=== PATIENT | female | born 1990 | race Caucasian/White ===

== ENCOUNTER 2018-10-02 14:31 | Inpatient (IN) | payer MEDICAID, OTHER ==
[~2018-10-02] VITALS: Ht 160 cm; Wt 92.3 kg
[2018-10-02 15:02] LABS: CLARITY,URINE CLEAR (Clear); GLUCOSE, URINE 100 mg/dl (Neg); KETONES,URINE TRACE mg/dl (Neg); LEUKOCYTE ESTERASE ,URINE TRACE (Neg); NITRITES, URINE NEGATIVE (Neg); OCCULT BLOOD,URINE NEGATIVE (Neg); PH,URINE 6.5 (4.8-8.0); PROTEIN,URINE TRACE mg/dl (Neg)
[2018-10-02 15:03] LABS: URINE HCG NEGATIVE (NEG)
[2018-10-02 15:06] LABS: UA COLLECTION TYPE CLN CATCH MIDSTREAM
[2018-10-02 15:08] LABS: COLOR,URINE DARK YELLOW (Yellow)
[2018-10-02 15:11] LABS: BACTERIA,URINE 2+ /HPF (Neg); MUCUS STRANDS FEW /LPF (Neg); RBC,URINE NONE SEEN /HPF (0-2); SQUAMOUS EPITHELIAL CELL,UR MANY /LPF (FEW); WBC,URINE 0-4 /HPF (0-4)
[2018-10-02] MEDS ORDERED: LIDOcaine Viscous 15ml cup PO ONE (15:30)
[2018-10-02] MEDS ORDERED: mag hydrox/Alum hydrox/simeth 30ml oral suspension PO ONE (15:30)
[2018-10-02] MEDS ORDERED: famotidine 20mg tablet PO ONE (15:30)
[2018-10-02 15:35] LABS: BASOPHILS % (AUTO) 0.3 % (0-1); EOSINOPHILS # (AUTO) 0.1 X10'3 (0-0.9); EOSINOPHILS % (AUTO) 1.4 % (0-6); HEMATOCRIT 46.1 % (35.0-45.0); HEMOGLOBIN 15.6 g/dl (12.0-16.0); LYMPHOCYTES # (AUTO) 1.6 X10'3 (1.1-4.8); LYMPHOCYTES % (AUTO) 23.4 % (21-51); MEAN CORPUSCULAR HEMOGLOBIN 29.7 PG (27.0-31.0); MEAN CORPUSCULAR HGB CONC 33.9 g/dL (33.0-36.5); MEAN CORPUSCULAR VOLUME 87.4 FL (78-98); MEAN PLATELET VOLUME 9.7 FL (7.4-10.4); MONOCYTES # (AUTO) 0.6 X10'3 (0-0.9); MONOCYTES % (AUTO) 8.3 % (2-12); NEUTROPHILS # (AUTO) 4.5 X10'3 (1.8-7.7); NEUTROPHILS % (AUTO) 66.6 % (42-75); PLATELET COUNT 230 X10'3 (140-440); RED BLOOD COUNT 5.28 X10'6 (4.20-5.60); RED CELL DISTRIBUTION WIDTH 13.2 % (11.5-14.5); WHITE BLOOD COUNT 6.8 X10'3 (4.5-11.0)
[2018-10-02] MEDS ORDERED: ondansetron/PF 4mg/2ml inj IV ONE (15:45)
[2018-10-02] MEDS ORDERED: morphine 4 MG/ML inj SYRINge IV PRN (15:45)
[2018-10-02] MEDS ORDERED: normal saline 1000ML IV soln IVB ONE (15:45)
[2018-10-02 15:54] LABS: ALBUMIN 4.4 G/DL (3.4-5.0); ALKALINE PHOSPHATASE 184 IU/L (46-116); ANION GAP 13 (8-16); ASPARTATE AMINO TRANSFERASE 302 U/L (10-37); BILIRUBIN,TOTAL 4.8 MG/DL (0.1-1.0); BLOOD UREA NITROGEN 8 MG/DL (7-18); BUN/CREATININE RATIO 10.8 (6.6-38.0); CALCIUM 9.9 MG/DL (8.5-10.1); CHLORIDE 105 MMOL/L (99-107); CREATININE 0.74 MG/DL (0.40-0.90); GLUCOSE 118 MG/DL (70-104); LIPASE 152 U/L (73-393); POTASSIUM 3.6 MMOL/L (3.5-5.1); SODIUM 143 MMOL/L (135-145); TOTAL CARBON DIOXIDE 25.5 MMOL/L (24-32); eGFR > 90 ML/MIN
[2018-10-02 15:58] LABS: ALANINE AMINOTRANSFERASE 2056 U/L (12-78); ALBUMIN/GLOBULIN RATIO 1.1 (1.1-1.5); TOTAL PROTEIN 8.3 G/DL (6.4-8.2)
[2018-10-02] MEDS ORDERED: acetaminophen 325mg tablet PO PRN ×2 (16:35)
[2018-10-02] MEDS ORDERED: ondansetron/PF 4mg/2ml inj IV PRN (16:35)
[2018-10-02] MEDS ORDERED: HYDROcodone/acetaminophen 10/325mg tab PO PRN (16:35)
[2018-10-02] MEDS ORDERED: magnesium hydroxide 30ml (MOM) UD suspension PO PRN (16:35)
[2018-10-02] MEDS ORDERED: mag hydrox/Alum hydrox/simeth 30ml oral suspension PO PRN (16:35)
[2018-10-02] MEDS ORDERED: HYDROcodone/acetaminophen 5mg/325mg tablet PO PRN (16:35)
[2018-10-02] MEDS ORDERED: NO HOME MEDS (16:44)
[2018-10-02] MEDS: normal saline 1000ml 1,000 ML IV SCH (17:27)
--- NOTE | 2018-10-02 19:14 | NUR ---
per dr. meek pt not going to surgery tonight, likely in am
--- NOTE | 2018-10-02 19:20 | NUR ---
Patient in room [facility]. I have received report from Katharine Le Rn and had the opportunity to ask questions and will assume patient care upon arrival to the floor. Addendum: 10/02/18 at 2005 by Malina Mackay RN Amended: Links added.
--- NOTE | 2018-10-02 19:35 | NUR ---
pt settled into bed no s&S of distress and started to dart her and nasal swab done on her.
[2018-10-02 20:08] VITALS: BP 129/82
--- NOTE | 2018-10-02 21:30 | NUR ---
denies pain at this time.
--- NOTE | 2018-10-02 22:30 | NUR ---
resting without changes
[2018-10-03] VITALS (20 sets, daily range): BP systolic 93–162; BP diastolic 55–85
--- NOTE | 2018-10-03 00:31 | NUR ---
resting eyes closed no s&s of distress.
[2018-10-03] MEDS: normal saline 1000ml 1,000 ML IV SCH ×2 (02:46→16:18)
--- NOTE | 2018-10-03 02:50 | NUR ---
pt awoke denies pain and new iv ns hung at this time.
--- NOTE | 2018-10-03 03:47 | NUR ---
awake texting sitting up in bed. denies pain.
--- NOTE | 2018-10-03 04:37 | NUR ---
awake denies pain no changes.
--- NOTE | 2018-10-03 05:25 | NUR ---
pt resting eyes closed without changes.
[2018-10-03 05:41] LABS: BASOPHILS % (AUTO) 0.3 % (0-1); EOSINOPHILS # (AUTO) 0.1 X10'3 (0-0.9); EOSINOPHILS % (AUTO) 1.2 % (0-6); HEMATOCRIT 39.7 % (35.0-45.0); HEMOGLOBIN 13.5 g/dl (12.0-16.0); LYMPHOCYTES # (AUTO) 1.7 X10'3 (1.1-4.8); LYMPHOCYTES % (AUTO) 31.2 % (21-51); MEAN CORPUSCULAR HEMOGLOBIN 29.8 PG (27.0-31.0); MEAN CORPUSCULAR HGB CONC 33.9 g/dL (33.0-36.5); MEAN CORPUSCULAR VOLUME 87.9 FL (78-98); MEAN PLATELET VOLUME 9.9 FL (7.4-10.4); MONOCYTES # (AUTO) 0.5 X10'3 (0-0.9); MONOCYTES % (AUTO) 10.2 % (2-12); NEUTROPHILS # (AUTO) 3.1 X10'3 (1.8-7.7); NEUTROPHILS % (AUTO) 57.1 % (42-75); PLATELET COUNT 162 X10'3 (140-440); RED BLOOD COUNT 4.52 X10'6 (4.20-5.60); RED CELL DISTRIBUTION WIDTH 13.6 % (11.5-14.5); WHITE BLOOD COUNT 5.4 X10'3 (4.5-11.0)
[2018-10-03 05:50] LABS: ALBUMIN 3.2 G/DL (3.4-5.0); ALKALINE PHOSPHATASE 139 IU/L (46-116); ANION GAP 10 (8-16); ASPARTATE AMINO TRANSFERASE 205 U/L (10-37); BILIRUBIN,TOTAL 4.1 MG/DL (0.1-1.0); BLOOD UREA NITROGEN 6 MG/DL (7-18); BUN/CREATININE RATIO 9.2 (6.6-38.0); CALCIUM 8.5 MG/DL (8.5-10.1); CHLORIDE 111 MMOL/L (99-107); CREATININE 0.65 MG/DL (0.40-0.90); GLUCOSE 102 MG/DL (70-104); POTASSIUM 3.6 MMOL/L (3.5-5.1); SODIUM 145 MMOL/L (135-145); TOTAL CARBON DIOXIDE 24.3 MMOL/L (24-32); eGFR > 90 ML/MIN
[2018-10-03 05:51] LABS: ALANINE AMINOTRANSFERASE 1380 U/L (12-78); TOTAL PROTEIN 6.4 G/DL (6.4-8.2)
--- NOTE | 2018-10-03 06:33 | NUR ---
Problems reprioritized. Patient report given, questions answered & plan of care reviewed with MIRIAM JOE. Addendum: 10/03/18 at 0634 by Malina Mackay RN Amended: Links added.
--- NOTE | 2018-10-03 06:44 | NUR ---
Patient in room [facility]. I have received report from Malina JOE and had the opportunity to ask questions and assume patient care.
[2018-10-03] MEDS ORDERED: fentaNYL/PF 50MCG/1 ML 2ML syringe ONE (09:42)
[2018-10-03] MEDS ORDERED: diphenhydrAMINE 50 mg/ml inj ONE (09:42)
[2018-10-03] MEDS ORDERED: MIDAZolam 5mg/5ml vial ONE (09:42)
[2018-10-03] MEDS ORDERED: glucagon, human recombinant 1mg kit ONE (09:42)
[2018-10-03] MEDS ORDERED: LIDOcaine Viscous 15ml cup ONE (09:43)
[2018-10-03] MEDS ORDERED: iohexol 300 MG/1 ML 50ml polymer ONE (09:43)
[2018-10-03] MEDS ORDERED: levoFLOXACIN-Levaquin 500mg/D5 100 ML IV ONE (10:43)
[2018-10-03] MEDS: HYDROmorphone inj. 0.5 MG/0.5 ML DISP.SYRIN IV PRN ×2 (14:39→19:40)
[2018-10-03] MEDS ORDERED: metoclopramide 5 mg/ml inj IV PRN (16:05)
--- NOTE | 2018-10-03 18:28 | NUR ---
Patient in room [facility]. I have received report from MIRIAM JOE and had the opportunity to ask questions and assume patient care. Addendum: 10/03/18 at 1828 by Malina Mackay RN Amended: Links added.
--- NOTE | 2018-10-03 18:51 | NUR ---
Problems reprioritized. Patient report given, questions answered & plan of care reviewed with Malina JOE.
--- NOTE | 2018-10-03 19:45 | NUR ---
pt medicated for nausea and pain at this time. tried few sips of tea at dinner which made her nauseous did not take anything else
--- NOTE | 2018-10-03 21:30 | NUR ---
denies pain or nausea at this time.
--- NOTE | 2018-10-03 23:30 | NUR ---
resting on her side no s&s of distress at this time.
[2018-10-04] VITALS (20 sets, daily range): BP systolic 118–148; BP diastolic 56–85
--- NOTE | 2018-10-04 00:11 | NUR ---
resting eyes closed no s&s of distress.
[2018-10-04] MEDS: normal saline 1000ml 1,000 ML IV SCH ×3 (02:14→16:01)
--- NOTE | 2018-10-04 02:15 | NUR ---
PT RESTING NEW IV HUNG
--- NOTE | 2018-10-04 02:20 | NUR ---
resting eyes closed without changes.
--- NOTE | 2018-10-04 04:20 | NUR ---
lab in to draw pt blood and after that was completed pt saline locked and set up for a preop shower.
--- NOTE | 2018-10-04 05:21 | NUR ---
back in a clean bed after preop surgical scrub shower and hooked back up to her iv.
[2018-10-04 05:54] LABS: BASOPHILS % (AUTO) 0.2 % (0-1); EOSINOPHILS # (AUTO) 0.1 X10'3 (0-0.9); EOSINOPHILS % (AUTO) 0.7 % (0-6); HEMATOCRIT 38.3 % (35.0-45.0); LYMPHOCYTES # (AUTO) 1.4 X10'3 (1.1-4.8); LYMPHOCYTES % (AUTO) 19.5 % (21-51); MEAN CORPUSCULAR HEMOGLOBIN 30.2 PG (27.0-31.0); MEAN CORPUSCULAR HGB CONC 33.9 g/dL (33.0-36.5); MEAN CORPUSCULAR VOLUME 89.1 FL (78-98); MEAN PLATELET VOLUME 10.2 FL (7.4-10.4); MONOCYTES # (AUTO) 0.5 X10'3 (0-0.9); MONOCYTES % (AUTO) 7.4 % (2-12); NEUTROPHILS # (AUTO) 5.2 X10'3 (1.8-7.7); NEUTROPHILS % (AUTO) 72.2 % (42-75); PLATELET COUNT 151 X10'3 (140-440); RED CELL DISTRIBUTION WIDTH 13.5 % (11.5-14.5); WHITE BLOOD COUNT 7.2 X10'3 (4.5-11.0)
--- NOTE | 2018-10-04 06:18 | NUR ---
Problems reprioritized. Patient report given, questions answered & plan of care reviewed with Linda Horta. Addendum: 10/04/18 at 0619 by Malina Mackay RN Amended: Links added.
[2018-10-04 06:29] LABS: ALANINE AMINOTRANSFERASE 1078 U/L (12-78); ALBUMIN/GLOBULIN RATIO 0.9 (1.1-1.5); ALKALINE PHOSPHATASE 141 IU/L (46-116); ANION GAP 10 (8-16); ASPARTATE AMINO TRANSFERASE 126 U/L (10-37); BILIRUBIN,TOTAL 2.8 MG/DL (0.1-1.0); BLOOD UREA NITROGEN 5 MG/DL (7-18); BUN/CREATININE RATIO 7.8 (6.6-38.0); CALCIUM 8.5 MG/DL (8.5-10.1); CHLORIDE 108 MMOL/L (99-107); CREATININE 0.64 MG/DL (0.40-0.90); GLUCOSE 81 MG/DL (70-104); POTASSIUM 3.7 MMOL/L (3.5-5.1); SODIUM 142 MMOL/L (135-145); TOTAL CARBON DIOXIDE 23.9 MMOL/L (24-32); TOTAL PROTEIN 6.5 G/DL (6.4-8.2); eGFR > 90 ML/MIN
--- NOTE | 2018-10-04 07:00 | NUR ---
Patient in room [facility]. I have received report from sheri JOE and had the opportunity to ask questions and assume patient care.
[2018-10-04] MEDS ORDERED: ringers solution, lacted 1,000 ML IV ONE (07:22)
[2018-10-04] MEDS ORDERED: INDOCYANINE GREEN 25 MG VIAL IV ONE (09:30)
--- NOTE | 2018-10-04 11:42 | NUR ---
patient seen this am by dr bridges is for lap debi. IV Dye administered 1115hrs.Preopchecklist complete. Report called to Holland JOE
[2018-10-04] MEDS ORDERED: BUPIVAcaine/PF 2.5 mg/ml (0.25%) 30ml vial ONE (12:08)
[2018-10-04] MEDS ORDERED: LIDOcaine 1% 30ml preserv. free vial ONE (12:08)
[2018-10-04] MEDS ORDERED: ringers solution, lacted 1,000 ML IV SCH (12:09)
[2018-10-04] MEDS ORDERED: ondansetron/PF 4mg/2ml inj IV PRN ×2 (12:10→14:45)
[2018-10-04] MEDS ORDERED: labetalol 20mg/4ml (5mg/ml) syringe IV PRN (12:10)
[2018-10-04] MEDS ORDERED: hydrALAZINE 20mg/ml inj. IV PRN (12:10)
[2018-10-04] MEDS ORDERED: fentaNYL/PF 50MCG/1 ML 2ML syringe IV PRN ×2 (12:10)
[2018-10-04] MEDS ORDERED: morphine 4 MG/ML inj SYRINge IV PRN ×2 (12:10)
[2018-10-04] MEDS ORDERED: rocuronium 10mg/ml inj IV ONE (12:16)
[2018-10-04] MEDS ORDERED: sevoflurane 250ml liquid IH ONE (12:16)
[2018-10-04] MEDS ORDERED: midazolam 2 mg/2 ml injection ONE (12:19)
[2018-10-04] MEDS ORDERED: fentaNYL/PF 50MCG/1 ML 2ML syringe ONE (12:19)
[2018-10-04] MEDS ORDERED: ondansetron/PF 4mg/2ml inj ONE (12:20)
[2018-10-04] MEDS ORDERED: LIDOcaine 2% (20mg/ml) 5ml vial ONE (12:20)
[2018-10-04] MEDS ORDERED: dexamethasone sod phosphate 4mg/ml inj. ONE (12:20)
[2018-10-04] MEDS ORDERED: propofol inj 20 ML IV ONE (12:20)
[2018-10-04] MEDS ORDERED: neostigmine methylsulfate 1 MG/ML 10ml vial ONE (12:33)
[2018-10-04] MEDS ORDERED: glycopyrrolate 0.2mg/ml inj ONE (12:33)
[2018-10-04] MEDS ORDERED: ceFAZolin 1000mg inj ONE ×3 (12:41)
[2018-10-04] MEDS ORDERED: hydrALAZINE 20mg/ml inj. IV ONE (13:33)
--- NOTE | 2018-10-04 14:15 | NUR ---
Received from OR via , accompanied by Anesthesiologist DR BOWER and report given by Anesthesiolgist. AWAKENS TO VOICE. VITALS STABLE. DRESSINGS DI. ARLIN PAIN. ABD SOFT.
[2018-10-04] MEDS ORDERED: HYDROcodone/acetaminophen 10/325mg tab PO PRN (14:45)
[2018-10-04] MEDS ORDERED: HYDROcodone/acetaminophen 5mg/325mg tablet PO PRN (14:45)
--- NOTE | 2018-10-04 15:15 | NUR ---
Report called to receiving nurse. Transferred via BED Belongings . Special Issues communicated to receiving nurse. AWAKE AND ORIENTED. VITALS STABLE. DRESSINGS DI. ARLIN PAIN. TO SURGICAL RM 345A AT THIS TIME.
--- NOTE | 2018-10-04 15:45 | NUR ---
Patient in room [facility]. I have received report from Matthew JOE and had the opportunity to ask questions and assume patient care. patient wanting to void on return to room, noticed gown had been soaked by bandaide site to right side, reinforced and cleaned around site. will continue to monitor. Voided 500mls, present in room.
[2018-10-04] MEDS: HYDROmorphone inj. 0.5 MG/0.5 ML DISP.SYRIN IV PRN (16:03)
--- NOTE | 2018-10-04 18:02 | NUR ---
Problems reprioritized. Patient report given, questions answered & plan of care reviewed with prudence RN.
--- NOTE | 2018-10-04 18:28 | NUR ---
Patient in room [facility]. I have received report from Linda JOE and had the opportunity to ask questions and assume patient care.
[2018-10-05] VITALS: BP 110/54
[2018-10-05] MEDS: normal saline 1000ml 1,000 ML IV SCH ×2 (01:22→11:38)
[2018-10-05 04:45] LABS: BASOPHILS % (AUTO) 0.1 % (0-1); EOSINOPHILS % (AUTO) 0.2 % (0-6); HEMATOCRIT 36.6 % (35.0-45.0); HEMOGLOBIN 12.4 g/dl (12.0-16.0); LYMPHOCYTES # (AUTO) 1.7 X10'3 (1.1-4.8); MEAN CORPUSCULAR HEMOGLOBIN 29.8 PG (27.0-31.0); MEAN CORPUSCULAR HGB CONC 33.8 g/dL (33.0-36.5); MEAN CORPUSCULAR VOLUME 88.1 FL (78-98); MEAN PLATELET VOLUME 9.8 FL (7.4-10.4); MONOCYTES # (AUTO) 0.6 X10'3 (0-0.9); MONOCYTES % (AUTO) 6.8 % (2-12); NEUTROPHILS % (AUTO) 74.9 % (42-75); PLATELET COUNT 156 X10'3 (140-440); RED BLOOD COUNT 4.16 X10'6 (4.20-5.60); RED CELL DISTRIBUTION WIDTH 13.5 % (11.5-14.5); WHITE BLOOD COUNT 9.3 X10'3 (4.5-11.0)
[2018-10-05 04:55] LABS: ALANINE AMINOTRANSFERASE 797 U/L (12-78); ALBUMIN 2.8 G/DL (3.4-5.0); ALBUMIN/GLOBULIN RATIO 0.8 (1.1-1.5); ALKALINE PHOSPHATASE 127 IU/L (46-116); ANION GAP 9 (8-16); ASPARTATE AMINO TRANSFERASE 118 U/L (10-37); BILIRUBIN,TOTAL 1.8 MG/DL (0.1-1.0); BLOOD UREA NITROGEN 5 MG/DL (7-18); BUN/CREATININE RATIO 8.8 (6.6-38.0); CALCIUM 8.5 MG/DL (8.5-10.1); CHLORIDE 108 MMOL/L (99-107); CREATININE 0.57 MG/DL (0.40-0.90); GLUCOSE 81 MG/DL (70-104); POTASSIUM 3.4 MMOL/L (3.5-5.1); SODIUM 141 MMOL/L (135-145); TOTAL CARBON DIOXIDE 24.4 MMOL/L (24-32); TOTAL PROTEIN 6.2 G/DL (6.4-8.2); eGFR > 90 ML/MIN
[2018-10-05] MEDS ORDERED: famotidine 20mg tablet PO ONE (06:00)
--- NOTE | 2018-10-05 06:38 | NUR ---
Problems reprioritized. Patient report given, questions answered & plan of care reviewed with LUANA JOE.
[2018-10-05 07:14] VITALS: BP 108/57
--- NOTE | 2018-10-05 09:03 | NUR ---
Pt moved to room 344A d/t needed repairs in room 345, per engineering. Pt agreed to move and all belongings moved w/ pt.
[2018-10-05 11:00] VITALS: BP 126/72
[2018-10-05] MEDS ORDERED: potassium Cl 20 mEq SR tablet PO STA (12:38)
--- NOTE | 2018-10-05 14:15 | NUR ---
Patient discharged home via family and taken from unit via wheelchair with x1 staff. Patient alert, oriented and in no apparent distress at time of discharge. PIV removed with cannula intact. Patient took all belongings with her including her discharge instructions. Patient was provide Dr. Zhong's office number to schedule a follow up appointment. She was also provided with the number for Dr. Melendez's office so she can have her appointment there as well. Patient was also given band aids to cover her lap sites. Patient stated and understanding of discharge instructions and was given time for questions and answers.
== END 2018-10-05 14:15 | disposition home or self-care (01) | DRG 419 ==
LOC: ER 14:32 → SUR 3N 19:36 → CMPBEDREQ 10-03 19:44 → SUR 3N 10-05 08:28
PROVIDERS: ADMIT Hospitalist; ATTEND Hospitalist
PROC: 0F798DZ Dilation of Common Bile Duct with Intraluminal Device, Via Natural or Artificial Opening Endoscopic (ICD-10-PCS; 2018-10-03)
PROC: BF101ZZ Fluoroscopy of Bile Ducts using Low Osmolar Contrast (ICD-10-PCS; 2018-10-03)
PROC: BF121ZZ Fluoroscopy of Gallbladder using Low Osmolar Contrast (ICD-10-PCS; 2018-10-04)
PROC: 8E0WXCZ Robotic Assisted Procedure of Trunk Region (ICD-10-PCS; 2018-10-04)
PROC: 0FT44ZZ Resection of Gallbladder, Percutaneous Endoscopic Approach (ICD-10-PCS; principal; 2018-10-04 12:16)
DX: K80.71 Calculus of gallbladder and bile duct without cholecystitis with obstruction (principal); K83.8 Other specified diseases of biliary tract; J45.909 Unspecified asthma, uncomplicated
CPT/HCPCS: 43262; 43274; 96361; 96374; 96375; 99285; Z7506; Z7508; 36415; 76700; 80053; 81001; 81025; 82948; 83690; 85025; 85610; 87081; 99152; 99153; A4215; A4618; A4620; A7000; C1769; G0378; J0360; J0690; J1100; J1170; J1200; J1610; J1956; J2001; J2250; J2270; J2405; J2704; J2710; J2765; J3010; J3490; J7030; J7040; J7120; Q9967

== ENCOUNTER 2018-12-30 11:25 | Day surgery (SDC) | payer MEDICAID ==
[2018-12-30] VITALS (8 sets, daily range): BP systolic 115–153; BP diastolic 53–90
[~2018-12-30] VITALS: Ht 160 cm; Wt 90.9 kg
[~2018-12-30 11:25] MED LIST: NO HOME MEDS
[2018-12-30] MEDS ORDERED: MIDAZolam 5mg/5ml vial ONE (13:27)
[2018-12-30] MEDS ORDERED: glucagon, human recombinant 1mg kit ONE (13:27)
[2018-12-30] MEDS ORDERED: fentaNYL/PF 50MCG/1 ML 2ML syringe ONE (13:27)
[2018-12-30] MEDS ORDERED: LIDOcaine Viscous 15ml cup ONE (13:27)
[2018-12-30] MEDS ORDERED: iohexol 300 MG/1 ML 50ml polymer ONE (13:28)
== END 2018-12-30 15:20 | disposition home or self-care (01) ==
LOC: GI LAB 11:25
PROVIDERS: ATTEND Internal Medicine Gastroenterology
DX: Z46.59 Encounter for fitting and adjustment of other gastrointestinal appliance and device (principal); K80.50 Calculus of bile duct without cholangitis or cholecystitis without obstruction; E66.9 Obesity, unspecified; Z68.35 Body mass index [BMI] 35.0-35.9, adult
CPT/HCPCS: 43264; 43275; 99152; 99153; C1769; C1773; J1610; J2250; J3010; J7040; Q9967

== ENCOUNTER 2018-12-31 13:50 | Inpatient (IN) | payer MEDICAID ==
[2018-12-30 20:59] VITALS: BP 121/85
[~2018-12-31] VITALS: Ht 160 cm; Wt 91.0 kg
[2018-12-31] VITALS (14 sets, daily range): BP systolic 103–138; BP diastolic 62–94
[2018-12-31] MEDS ORDERED: ondansetron 4mg rapidly disintigrating tab PO ONE (15:55)
[2018-12-31] MEDS ORDERED: normal saline 1000ML IV soln IVB ONE (15:55)
[2018-12-31 16:29] LABS: BASOPHILS % (AUTO) 0.3 % (0-1); EOSINOPHILS % (AUTO) 0.4 % (0-6); HEMATOCRIT 43.1 % (35.0-45.0); HEMOGLOBIN 14.9 g/dl (12.0-16.0); LYMPHOCYTES # (AUTO) 0.4 X10'3 (1.1-4.8); LYMPHOCYTES % (AUTO) 3.8 % (21-51); MEAN CORPUSCULAR HEMOGLOBIN 30.2 PG (27.0-31.0); MEAN CORPUSCULAR HGB CONC 34.6 g/dL (33.0-36.5); MEAN CORPUSCULAR VOLUME 87.2 FL (78-98); MEAN PLATELET VOLUME 8.7 FL (7.4-10.4); MONOCYTES # (AUTO) 0.5 X10'3 (0-0.9); MONOCYTES % (AUTO) 4.6 % (2-12); NEUTROPHILS # (AUTO) 9.7 X10'3 (1.8-7.7); NEUTROPHILS % (AUTO) 90.9 % (42-75); PLATELET COUNT 211 X10'3 (140-440); RED BLOOD COUNT 4.94 X10'6 (4.20-5.60); WHITE BLOOD COUNT 10.6 X10'3 (4.5-11.0)
[2018-12-31 16:42] LABS: ALBUMIN 3.6 G/DL (3.4-5.0); ALKALINE PHOSPHATASE 207 IU/L (46-116); ANION GAP 12 (8-16); ASPARTATE AMINO TRANSFERASE 676 U/L (10-37); BILIRUBIN,TOTAL 6.3 MG/DL (0.1-1.0); BLOOD UREA NITROGEN 10 MG/DL (7-18); BUN/CREATININE RATIO 10.8 (6.6-38.0); CALCIUM 8.9 MG/DL (8.5-10.1); CHLORIDE 102 MMOL/L (99-107); CREATININE 0.93 MG/DL (0.40-0.90); GLUCOSE 100 MG/DL (70-104); LIPASE 93 U/L (73-393); POTASSIUM 3.6 MMOL/L (3.5-5.1); SODIUM 137 MMOL/L (135-145); TOTAL CARBON DIOXIDE 22.7 MMOL/L (24-32); eGFR 71 ML/MIN
[2018-12-31 16:44] LABS: ALANINE AMINOTRANSFERASE 1425 U/L (12-78); ALBUMIN/GLOBULIN RATIO 0.9 (1.1-1.5); TOTAL PROTEIN 7.8 G/DL (6.4-8.2)
[2018-12-31] MEDS ORDERED: piperacillin/tazo 3.375gm/50ml 50 ML IV ONE (17:40)
[2018-12-31] MEDS ORDERED: HYDROmorphone inj. 0.5 MG/0.5 ML DISP.SYRIN IV PRN (18:00)
[2018-12-31] MEDS ORDERED: mag hydrox/Alum hydrox/simeth 30ml oral suspension PO PRN (18:00)
[2018-12-31] MEDS ORDERED: HYDROmorphone 1 mg/ml syringe IV PRN (18:00)
[2018-12-31] MEDS ORDERED: magnesium hydroxide 30ml (MOM) UD suspension PO PRN (18:00)
[2018-12-31] MEDS ORDERED: ondansetron/PF 4mg/2ml inj IV PRN (18:00)
[2018-12-31] MEDS ORDERED: piperacillin/tazo 3.375gm/50ml 50 ML IV SCH (18:09)
[2018-12-31] MEDS ORDERED: iohexol 300mg/ml 100ml inj. ONE (18:10)
[2018-12-31 18:17] LABS: CLARITY,URINE CLEAR (Clear); COLOR,URINE AMBER (Yellow); GLUCOSE, URINE NEGATIVE (Neg); KETONES,URINE 40 mg/dl (Neg); LEUKOCYTE ESTERASE ,URINE TRACE (Neg); NITRITES, URINE NEGATIVE (Neg); OCCULT BLOOD,URINE NEGATIVE (Neg); PROTEIN,URINE 30 mg/dl (Neg); UROBILINOGEN,URINE >=8.0 E.U/dL (0.2-1.0)
[2018-12-31 18:20] LABS: UA COLLECTION TYPE CLN CATCH MIDSTREAM
[2018-12-31 18:23] LABS: URINE HCG NEGATIVE (NEG)
[2018-12-31 18:25] LABS: BACTERIA,URINE 3+ /HPF (Neg); MUCUS STRANDS MODERATE /LPF (Neg); RBC,URINE NONE SEEN /HPF (0-2); SQUAMOUS EPITHELIAL CELL,UR MANY /LPF (FEW)
--- NOTE | 2018-12-31 18:29 | NUR ---
patient to ct
[2018-12-31] MEDS ORDERED: fentaNYL/PF 50MCG/1 ML 2ML syringe IV PRN (18:55)
[2018-12-31] MEDS ORDERED: normal saline 1000ml 1,000 ML IV SCH (18:55)
[2018-12-31] MEDS ORDERED: MIDAZolam 5mg/5ml vial IV PRN (18:55)
[2018-12-31] MEDS ORDERED: MIDAZolam 5mg/5ml vial ONE (19:00)
[2018-12-31] MEDS ORDERED: fentaNYL/PF 50MCG/1 ML 2ML syringe ONE (19:00)
[2018-12-31] MEDS ORDERED: glucagon, human recombinant 1mg kit ONE (19:01)
[2018-12-31] MEDS ORDERED: LIDOcaine Viscous 15ml cup ONE (19:01)
[2018-12-31] MEDS ORDERED: iohexol 300 MG/1 ML 50ml polymer ONE (19:01)
--- NOTE | 2018-12-31 20:07 | NUR ---
Patient in room ED 1. I have received report from HEATH Cason ED and had the opportunity to ask questions and assume patient care.
[2018-12-31] MEDS: normal saline 1000ml 1,000 ML IV SCH (20:52)
[2019-01-01 00:30] VITALS: BP 120/77
[2019-01-01] MEDS ORDERED: acetaminophen 325mg tablet PO ONE (00:50)
--- NOTE | 2019-01-01 00:52 | NUR ---
Contacted Dr. Hebert's regarding pt's temp of 102.5 and 102.1, was 100.4 upon transferred to floor. Order for Tylenol 650mg ONCE ordered.
--- NOTE | 2019-01-01 00:52 | NUR ---
Talked to Dr. Hebert's regarding no blood cx drawn prior to initial, one dose Zosyn in ED. Per Dr. Hebert, order to be discussed with alexia PRINCE.
[2019-01-01] MEDS ORDERED: piperacillin/tazo 3.375gm/50ml 50 ML IV SCH (03:18)
[2019-01-01] MEDS: piperacillin/tazo 3.375gm/50ml 50 ML IV SCH ×3 (04:06→18:00)
[2019-01-01 05:18] LABS: ALANINE AMINOTRANSFERASE 903 U/L (12-78); ALBUMIN 2.9 G/DL (3.4-5.0); ALKALINE PHOSPHATASE 163 IU/L (46-116); ANION GAP 13 (8-16); ASPARTATE AMINO TRANSFERASE 289 U/L (10-37); BLOOD UREA NITROGEN 5 MG/DL (7-18); BUN/CREATININE RATIO 8.1 (6.6-38.0); CALCIUM 8.1 MG/DL (8.5-10.1); CHLORIDE 107 MMOL/L (99-107); CREATININE 0.62 MG/DL (0.40-0.90); GLUCOSE 95 MG/DL (70-104); SODIUM 139 MMOL/L (135-145); TOTAL CARBON DIOXIDE 19.5 MMOL/L (24-32); eGFR > 90 ML/MIN
[2019-01-01 05:25] LABS: ALBUMIN/GLOBULIN RATIO 0.8 (1.1-1.5); POTASSIUM 3.3 MMOL/L (3.5-5.1); TOTAL PROTEIN 6.6 G/DL (6.4-8.2)
[2019-01-01 06:14] LABS: BASOPHILS % (AUTO) 0.1 % (0-1); EOSINOPHILS % (AUTO) 0.2 % (0-6); HEMATOCRIT 37.9 % (35.0-45.0); LYMPHOCYTES # (AUTO) 0.4 X10'3 (1.1-4.8); LYMPHOCYTES % (AUTO) 8.1 % (21-51); MEAN CORPUSCULAR HEMOGLOBIN 30.4 PG (27.0-31.0); MEAN CORPUSCULAR HGB CONC 34.3 g/dL (33.0-36.5); MEAN CORPUSCULAR VOLUME 88.5 FL (78-98); MEAN PLATELET VOLUME 9.8 FL (7.4-10.4); MONOCYTES # (AUTO) 0.3 X10'3 (0-0.9); MONOCYTES % (AUTO) 5.8 % (2-12); NEUTROPHILS # (AUTO) 4.4 X10'3 (1.8-7.7); NEUTROPHILS % (AUTO) 85.8 % (42-75); PLATELET COUNT 154 X10'3 (140-440); RED BLOOD COUNT 4.28 X10'6 (4.20-5.60); RED CELL DISTRIBUTION WIDTH 13.2 % (11.5-14.5); WHITE BLOOD COUNT 5.1 X10'3 (4.5-11.0)
[2019-01-01] MEDS: normal saline 1000ml 1,000 ML IV SCH ×3 (06:42→20:35)
--- NOTE | 2019-01-01 06:44 | NUR ---
Patient in room [facility]. I have received report from Staci JOE and had the opportunity to ask questions and assume patient care.
--- NOTE | 2019-01-01 06:52 | NUR ---
Problems reprioritized. Patient report given, questions answered & plan of care reviewed with HEATH Bush.
[2019-01-01 08:00] VITALS: BP 119/93
[2019-01-01] MEDS ORDERED: pneumococcal 23-VAL P-sac vacc 25 mcg/0.5ml vial IMVAC ONE (10:00)
[2019-01-01 12:00] VITALS: BP 153/84
[2019-01-01] MEDS ORDERED: magnesium 4gm in 100ml NS 100 ML IV PRN (15:50)
[2019-01-01] MEDS ORDERED: magnesium Cl slow-release 64mg tablet PO PRN (15:50)
[2019-01-01] MEDS ORDERED: potassium CL 10mEq/100ml bag 100 ML IV PRN (15:50)
[2019-01-01] MEDS ORDERED: potassium Cl 20 mEq SR tablet PO PRN (15:50)
[2019-01-01] MEDS: potassium Cl 20 mEq SR tablet PO PRN ×2 (16:09→20:34)
[2019-01-01 18:00] VITALS: BP 124/62
--- NOTE | 2019-01-01 18:32 | NUR ---
Patient in room [facility]. I have received report from HEATH Bush and had the opportunity to ask questions and assume patient care.
[2019-01-02] VITALS: BP 102/66
[2019-01-02] MEDS: potassium Cl 20 mEq SR tablet PO PRN (00:40)
--- NOTE | 2019-01-02 00:45 | NUR ---
Patient's temperature ranges, 100.3F-99.6F since coming on shift. Cool measures have been performed. Will continue to monitor.
[2019-01-02] MEDS: piperacillin/tazo 3.375gm/50ml 50 ML IV SCH (01:57)
--- NOTE | 2019-01-02 06:39 | NUR ---
Problems reprioritized. Patient report given, questions answered & plan of care reviewed with HEATH Head. Addendum: 01/02/19 at 0640 by Staci Echavarria RN Problems reprioritized. Patient report given, questions answered & plan of care reviewed with HEATH Bush.
[2019-01-02 06:42] LABS: BASOPHILS % (AUTO) 0.4 % (0-1); EOSINOPHILS # (AUTO) 0.1 X10'3 (0-0.9); EOSINOPHILS % (AUTO) 2.1 % (0-6); HEMATOCRIT 35.9 % (35.0-45.0); HEMOGLOBIN 12.4 g/dl (12.0-16.0); LYMPHOCYTES # (AUTO) 0.7 X10'3 (1.1-4.8); MEAN CORPUSCULAR HEMOGLOBIN 30.2 PG (27.0-31.0); MEAN CORPUSCULAR HGB CONC 34.6 g/dL (33.0-36.5); MEAN CORPUSCULAR VOLUME 87.5 FL (78-98); MEAN PLATELET VOLUME 9.3 FL (7.4-10.4); MONOCYTES # (AUTO) 0.5 X10'3 (0-0.9); MONOCYTES % (AUTO) 13.6 % (2-12); NEUTROPHILS # (AUTO) 2.1 X10'3 (1.8-7.7); NEUTROPHILS % (AUTO) 61.9 % (42-75); PLATELET COUNT 134 X10'3 (140-440); RED BLOOD COUNT 4.11 X10'6 (4.20-5.60); RED CELL DISTRIBUTION WIDTH 13.1 % (11.5-14.5); WHITE BLOOD COUNT 3.3 X10'3 (4.5-11.0)
--- NOTE | 2019-01-02 06:42 | NUR ---
Patient in room [facility]. I have received report from Staci JOE and had the opportunity to ask questions and assume patient care.
[2019-01-02 06:55] LABS: ALANINE AMINOTRANSFERASE 556 U/L (12-78); ALBUMIN 2.7 G/DL (3.4-5.0); ALBUMIN/GLOBULIN RATIO 0.7 (1.1-1.5); ALKALINE PHOSPHATASE 154 IU/L (46-116); ANION GAP 11 (8-16); ASPARTATE AMINO TRANSFERASE 100 U/L (10-37); BILIRUBIN,TOTAL 3.3 MG/DL (0.1-1.0); BLOOD UREA NITROGEN 8 MG/DL (7-18); BUN/CREATININE RATIO 12.1 (6.6-38.0); CALCIUM 8.3 MG/DL (8.5-10.1); CHLORIDE 107 MMOL/L (99-107); CREATININE 0.66 MG/DL (0.40-0.90); GLUCOSE 99 MG/DL (70-104); SODIUM 138 MMOL/L (135-145); TOTAL CARBON DIOXIDE 19.9 MMOL/L (24-32); TOTAL PROTEIN 6.6 G/DL (6.4-8.2); eGFR > 90 ML/MIN
[2019-01-02 07:00] VITALS: BP 123/84
[2019-01-02] MEDS ORDERED: AMOX-580 PO (10:38)
--- NOTE | 2019-01-02 11:40 | NUR ---
pt discharge to home with boyfriend. Pt A&O, in no evident distress. Pt verbalizes understanding of DC instructions and follow up with Dr Hinson within 2 weeks. Pt was escorted out to the front by Auxiliary staff member where she was having her boyfriend pick her up to go .
== END 2019-01-02 11:36 | disposition home or self-care (01) | DRG 720 ==
LOC: ER 13:51 → ED HOLD 17:57 → SUR 3N 20:49
PROVIDERS: ADMIT Family Medicine; ATTEND Family Medicine
PROC: 0FC98ZZ Extirpation of Matter from Common Bile Duct, Via Natural or Artificial Opening Endoscopic (ICD-10-PCS; principal; 2018-12-31)
PROC: BW211ZZ Computerized Tomography (CT Scan) of Abdomen and Pelvis using Low Osmolar Contrast (ICD-10-PCS; 2018-12-31)
DX: A41.9 Sepsis, unspecified organism (principal); K80.50 Calculus of bile duct without cholangitis or cholecystitis without obstruction; R17 Unspecified jaundice; R79.89 Other specified abnormal findings of blood chemistry; E87.6 Hypokalemia; R74.0 Nonspecific elevation of levels of transaminase and lactic acid dehydrogenase [LDH]; R74.8 Abnormal levels of other serum enzymes; Z90.49 Acquired absence of other specified parts of digestive tract; Z79.899 Other long term (current) drug therapy
CPT/HCPCS: 36415; 43264; 74177; 76700; 80053; 81001; 81025; 83690; 85025; 87081; 96360; 99152; 99153; 99285; A4620; C1769; G0378; J1170; J1610; J2250; J2543; J3010; J7030; J7040; Q9967

== ENCOUNTER 2022-07-25 07:29 | Emergency (ER) | payer BC, MEDICAID ==
[~2022-07-25] VITALS: Ht 160 cm; Wt 100.6 kg
[2022-07-25] MEDS ORDERED: normal saline 1000ml 1,000 ML IV ONE (09:20)
[2022-07-25] MEDS ORDERED: morphine 4 MG/ML inj SYRINge IV ONE (09:20)
[2022-07-25] MEDS ORDERED: metoclopramide 5 mg/ml inj IV ONE (09:20)
[2022-07-25 11:24] VITALS: BP 121/57
== END 2022-07-25 11:45 | disposition home or self-care (01) ==
LOC: ER 07:30
DX: G43.909 Migraine, unspecified, not intractable, without status migrainosus (principal)
CPT/HCPCS: 70450; 96361; 96374; 96375; 99285; J2270; J2765; J7030

== ENCOUNTER 2024-05-01 18:21 | Emergency (ER) | payer BC ==
[~2024-05-01] VITALS: Ht 160 cm; Wt 112.7 kg
[2024-05-01] MEDS ORDERED: TAM75C PO (19:36)
[2024-05-01] MEDS ORDERED: IBUP-862 PO (19:36)
[2024-05-01] MEDS: oseltamivir phos 75mg capsule PO ONE (19:40)
[2024-05-01] MEDS: ibuprofen tablet 400 MG TABLET PO ONE (19:41)
[2024-05-01 19:46] VITALS: BP 160/84; PULSE 99; RESP 18; TEMP 101; O2SAT 99
== END 2024-05-01 19:48 | disposition home or self-care (01) ==
LOC: ER 18:22
DX: J11.1 Influenza due to unidentified influenza virus with other respiratory manifestations (principal)
CPT/HCPCS: 87502; 87503; 99283

== ENCOUNTER 2024-11-13 14:26 | Emergency (ER) | payer BC ==
[~2024-11-13] VITALS: Ht 160 cm; Wt 107.9 kg
[~2024-11-13 14:26] MED LIST changes: +IBUP-862 PO; -NO HOME MEDS
[2024-11-13 14:38] VITALS: TEMP 97.6
[2024-11-13 15:14] LABS: MEAN PLATELET VOLUME 8.9 FL (7.4-10.4); RED CELL DISTRIBUTION WIDTH 13.5 % (11.5-14.5)
--- NOTE | 2024-11-13 15:18 | ELECTROCARDIOGRAPH REPORT ---
[facility] Test Date: 2024-11-13 Test Time: 15:16:07 Pat Name: SAMANTHA READ Department: [facility]- Patient ID: [facility]-[id number] Room: Gender: F [employer]: : 1990 Requested By: JUAN MARQUEZ Order Number: [id number] Reading MD: Measurements Intervals [place] Rate: 60 P: 55 TN: 170 QRS: 62 QRSD: 93 T: 32 QT: 393 QTc: 393 Interpretive Statements Sinus rhythm Low voltage, precordial leads Baseline wander in lead(s) II,III,aVF Please click the below link to view image of tracing.
[2024-11-13 15:31] LABS: CREATININE 0.74 MG/DL (0.40-0.90); PRO BRAIN NATRIURETIC PEPTIDE 116 PG/ML (0-125); TOTAL CARBON DIOXIDE 22.4 MMOL/L (24-32); eCRCL 87 ML/MIN; eGFR 89 ML/MIN
[2024-11-13] MEDS ORDERED: HYDR50TA65 PO (16:34)
--- NOTE | 2024-11-13 16:40 | Physician Documentation ---
History of Present Illness ~ Chief Complaint: Chest Pain Stated Complaint: CP Time Seen by MD: 15:55 Primary Medical Doctor: Jimena Carvalho Source: patient, RN/MD Mode of Arrival: Ambulatory HPI Patient is seen today with complaints of chest pain with history of anxiety and states that her chest pain has been going on since last week which perfectly coincides with her starting his CPAP usage and also stating that she has claustrophobia and states the CPAP usage as really stressing her out and she has only been able to wear for max length of 4 hours at a time because of her claustrophobia. Patient denies any dyspnea on exertion or nausea or vomiting or fever or chills. She has no other concern or complaint at this time. Medication Reconciliation Allergies: Coded Allergies: No Known Allergies (Unverified , 11/13/24) Scheduled Ibuprofen (Ibu), 1 TAB PO Q6H Past Medical History Past Medical History: Headache, Migraine Past Surgical History: noncontributory Last Menstrual Period: Oct 19, 2024 Patient History: Patient reports no known family medical history. Drug Use: none Lives In: Home Review of Systems Constitutional: Denies: chills, fever, weakness Eyes: Denies: pain, blurred vision ENT: Denies: ear pain, nose pain, throat pain, mouth pain Respiratory: Denies: cough, shortness of breath Cardiovascular: Denies: chest pain, palpitations Gastrointestinal: Denies: abdominal pain, nausea, vomiting Genitourinary: Denies: burning, dysuria Female Genitalia: Denies: vaginal discharge, pelvic pain Neurological: Denies: headache, dizziness Musculoskeletal: Denies: pain, swelling Integumentary: Denies: rash, lesions Allergic/Immunologic: Denies: hives, itching Hematologic/Lymphatic: Denies: no symptoms reported Psychiatric: Denies: depression, anxiety Physical Exam Vital Signs: Temperature: 97.6, Source: Temporal, Heart Rate: 70, Respiratory Rate: 18, BP: 152/91, Pulse Oximetry: 98, Weight: 107.900 Physical Exam General: Awake and Alert, no acute distress. HEENT: Conjunctiva pink, Sclera clear, Mucus Membranes moist. Neck: Supple without masses and tenderness. Resp: Unlabored. Lungs clear to auscultation bilaterally. Chest: Patient on exam does not have any significant reproducible tenderness to palpation of her chest. Heart: Regular Rate and rhythm, normal S1 and S2 without murmur, rub or gallop. Abdomen: Soft and non tender no organomegaly Extremities: No cyanosis,clubbing or edema. Skin: Warm and Dry. Progress Results/Orders Results/Orders Vital Signs 11/13/24 11/13/24 14:38 15:58 Temp 97.6 Pulse 70 Resp 18 18 B/P (MAP) 152/91 Pulse Ox 98 Laboratory Tests Test 11/13/24 14:34 White Blood Count 9.1 Red Blood Count 5.12 Hemoglobin 14.7 Hematocrit 42.7 Mean Corpuscular Volume 83.5 Mean Corpuscular Hemoglobin 28.7 Mean Corpuscular Hemoglobin Concent 34.4 Red Cell Distribution Width 13.5 Platelet Count 283 Mean Platelet Volume 8.9 Neutrophils (%) (Auto) 57.8 Lymphocytes (%) (Auto) 34.4 Monocytes (%) (Auto) 6.2 Eosinophils (%) (Auto) 1.3 Basophils (%) (Auto) 0.3 Neutrophils # (Auto) 5.3 Lymphocytes # (Auto) 3.1 Monocytes # (Auto) 0.6 Eosinophils # (Auto) 0.1 Basophils # (Auto) 0.0 CBC Comment Sodium Level 141 Potassium Level 4.0 Chloride Level 106 Carbon Dioxide Level 22.4 L Anion Gap 13 Blood Urea Nitrogen 13 Creatinine 0.74 Estimated GFR/1.73 m2 89 BUN/Creatinine Ratio 17.6 Glucose Level 103 Calcium Level 9.0 Troponin I High Sensitivity < 4 L Troponin I High Sens Percent Delta Troponin I Hi Sens Absolute Change Pro-B-Type Natriuretic Peptide 116 Albumin 3.9 Chemistry Comments EKG/XRAY/CT/US/VASC/MRI EKG : Additional Comment EKG interpreted by myself today shows regular rate at 60 beats per minute, regular rhythm, no ST segment elevation or ischemic changes, no axis deviation. Heart Score: Heart Score Response (Comments) Value History Slightly Suspicious 0 EKG Normal 0 Age <45 0 Risk Factors No known risk factors 0 Troponin Normal limit 0 Total 0 Medical Decision Making Findings Patient is seen today with complaints of chest pain with history of anxiety and states that her chest pain has been going on since last week which perfectly coincides with her starting his CPAP usage and also stating that she has claustrophobia and states the CPAP usage as really stressing her out and she has only been able to wear for max length of 4 hours at a time because of her claustrophobia. Patient denies any dyspnea on exertion or nausea or vomiting or fever or chills. She has no other concern or complaint at this time. Patient did have labs that were unremarkable. Troponin level negative. EKG unremarkable. Patient likely has anxiety reaction or claustrophobia with use of her CPAP machine. Prescription of hydroxyzine 50 mg one tab twice a day sent to patient's pharmacy to be used as indicated and as needed. Patient will follow up with primary care for re-evaluation and discussion of symptoms. Return to ED with any worsening, concerning or changing symptoms. Departure Disposition: HOME / SELF CARE / HOMELESS Impression: Primary Impression: Chest pain at rest Condition: Stable Discharge Instructions: Nonspecific Chest Pain, Adult Additional Instructions: Patient did have labs that were unremarkable. Troponin level negative. EKG unremarkable. Patient likely has anxiety reaction or claustrophobia with use of her CPAP machine. Prescription of hydroxyzine 50 mg one tab twice a day sent to patient's pharmacy to be used as indicated and as needed. Patient will follow up with primary care for re-evaluation and discussion of symptoms. Return to ED with any worsening, concerning or changing symptoms. Referrals: NO PRIMARY CARE PROVIDER (PCP) Prescriptions Hydroxyzine HCl (Hydroxyzine HCl) 50 Mg Tablet 1 TAB PO BID for anxiety for 10 Days, #20 TAB 0 Refills Prov: GAIL RAMIREZ 11/13/24 Signature Scribe Signature: No scribe Attestation: No scribe GAIL RAMIREZ Nov 13, 2024 16:40
[2024-11-13 17:09] VITALS: BP 131/89; PULSE 69; RESP 18; O2SAT 99
== END 2024-11-13 16:59 | disposition home or self-care (01) ==
LOC: ER 14:26
DX: R07.9 Chest pain, unspecified (principal); G43.909 Migraine, unspecified, not intractable, without status migrainosus; Z79.899 Other long term (current) drug therapy
CPT/HCPCS: 36415; 80048; 83880; 84484; 85025; 93005; 99284